=== PATIENT | male | born 1970 ===

== ENCOUNTER 2023-01-05 10:30 | Emergency (ER) | payer SELFPAY ==
[~2023-01-05] VITALS: Ht 172.7 cm; Wt 90.9 kg
[2023-01-05 10:33] VITALS: BP 157/73; TEMP 97.7
[2023-01-05 11:10] VITALS: PULSE 60
== END 2023-01-05 11:10 | disposition home or self-care (01) ==
LOC: COL.ER 10:30
DX: T23.202A Burn of second degree of left hand, unspecified site, initial encounter (principal); Z28.310 Unvaccinated for COVID-19; X16.XXXA Contact with hot heating appliances, radiators and pipes, initial encounter; W01.0XXA Fall on same level from slipping, tripping and stumbling without subsequent striking against object, initial encounter